=== PATIENT | male | born 1935 | race Caucasian/White ===

== ENCOUNTER 2017-03-06 09:57 | Observation (INO) | payer MEDICARE, OTHER, BC ==
--- NOTE | 2017-03-06 10:28 | RAD ---
HISTORY: Syncope COMPARISONS: July 29, 2016 TECHNIQUE: Multiple contiguous axial CT scans were obtained of the head without intravenous contrast. FINDINGS: HEMORRHAGE/INFARCT: There is no hemorrhage or acute infarct. MASSES/SHIFT: There is no mass or shift. EXTRA-AXIAL SPACES: There are no extra-axial fluid collections. SULCI AND VENTRICLES: The sulci and ventricles are normal in size and position for the patient's stated age. CEREBRUM: There is hypoattenuation of the periventricular and subcortical white matter. BRAINSTEM: There are no focal parenchymal abnormalities. CEREBELLUM: There are no focal parenchymal abnormalities. VESSELS: The vessels are grossly normal. PARANASAL SINUSES: The paranasal sinuses are clear. ORBITS: The orbits are unremarkable. BONES AND SOFT TISSUE: No bone or soft tissue abnormalities are noted. OTHER: None IMPRESSION: NO ACUTE INTRACRANIAL PATHOLOGY. CHRONIC SMALL VESSEL ISCHEMIC CHANGES.
[2017-03-06 10:42] LABS: Hematocrit 38 % (42-52); Hemoglobin 12.4 g/dl (14.0-18.0); Mean Corpuscular HGB Conc 33 g/dl (31-36); Mean Corpuscular Hemoglobin 31 pg (27-31); Mean Corpuscular Volume 93 fL (80-94); Mean Platelet Volume 9 um3 (7.4-10.4); Red Blood Count 4.05 10^6/ul (4.0-5.4); Red Cell Distribution Width 14 % (10.5-15)
--- NOTE | 2017-03-06 10:48 | RAD ---
INDICATION: Near syncopal episode this morning. History of cardiac disease. COMPARISON: June 28, 2009 TECHNIQUE: Dual energy PA and routine lateral views of the chest were obtained. REPORT: Symmetric bilateral nipple shadows noted. No focal pulmonary lesion, alveolar consolidation, pleural effusion, pneumothorax. The lung volumes appear elevated. The heart, pulmonary vasculature, and mediastinal contours are unremarkable. Multilevel thoracic degenerative spondylosis. No thoracic fracture or suspicious focal osseous lesion evident. IMPRESSION: No evidence for acute intrathoracic disease.
[2017-03-06 11:01] LABS: ALT 13 U/L (7-52); AST 22 U/L (13-39); Alkaline Phosphatase 109 U/L (34-104); Anion Gap 5 mmol/L (2-11); BUN/Creatinine Ratio 16.8 (8-20); Blood Urea Nitrogen 32 mg/dL (6-24); CO2 Carbon Dioxide 28 mmol/L (22-32); Calcium 9.3 mg/dL (8.6-10.3); Chloride 106 mmol/L (101-111); EGFR African American 43.6 (>60); EGFR Non-African American 33.9 (>60); Globulin 2.6 g/dL (2-4); Glucose 89 mg/dL (70-100); Potassium 4.2 mmol/L (3.5-5.0); Sodium 139 mmol/L (133-145); Total Protein 6.6 g/dL (6.4-8.9)
[2017-03-06 11:32] LABS: Alcohol < 10 mg/dL (<10)
[2017-03-06] MEDS ORDERED: Acetaminophen TAB* 325 MG PO PRN (12:32)
[2017-03-06] MEDS ORDERED: NS 0.9% 1000 ML* 1,000 ML IV ONE (12:53)
--- NOTE | 2017-03-06 13:30 | ED ---
García Solorio Matthew, scribed for Kiran Ward MD on 03/06/17 at 1054 . Syncope/Near Syncope - HPI Summary HPI Summary: An 81 y/o male presents to the ED after a syncopal episode this morning. The patient was in the kitchen making breakfast, when he became dizzy and pass out. He denies the room spinning. He states that he was leaning on the counter and did not fall during the episode. Associated symptoms include dizziness, LOC, and left ankle swelling. The patient denies palpitations, SOB, and chest pain. Per the , he had a similar episode in April of 2016 and was found to be dehydrated at that time. - History Of Current Complaint Chief Complaint: EDSyncope Time Seen by Provider: 03/06/17 10:07 Hx Obtained From: Patient Onset/Duration: Sudden Onset, Resolved Context: Unwitnessed Activity At Onset: Exertion - ambulating Associated Head Trauma: No Aggravating Factor(s): Nothing Alleviating Factor(s): Spontaneous Resolution Associated Signs And Symptoms: Dizzy, Other - left ankle swelling - Allergies/Home Medications Allergies/Adverse Reactions: Allergies Allergy/AdvReac Type Severity Reaction Status Date / Time Ciprofloxacin [From Cipro] Allergy Anaphylatic Verified 07/29/16 19:06 Shock Valsartan [From Diovan] Allergy Hives Verified 07/29/16 19:06 Home Medications: Home Medications Allopurinol TAB* [Zyloprim 100 MG TAB*] 200 mg PO DAILY 03/06/17 [History Confirmed 03/06/17] Aspirin EC Low Dose* [Ecotrin EC Low Dose 81 MG*] 81 mg PO DAILY 03/06/17 [ History Confirmed 03/06/17] amLODIPine TAB* [Norvasc 5 mg TAB*] 10 mg PO DAILY 03/06/17 [History Confirmed 03/06/17] hydrALAZINE TAB* [Apresoline TAB*] 50 mg PO BID 03/06/17 [History Confirmed 11/10] PMH/Surg Hx/FS Hx/Imm Hx Cardiovascular History: Reports: Hx Hypercholesterolemia, Hx Hypertension Infectious Disease History: Denies: Traveled Outside the [place] in Last 30 Days - Family History Known Family History: Positive: Cardiac Disease, Renal Disease, Other - [place] - Social History Alcohol Use: Occasionally Hx Substance Use: No Substance Use Type: Reports: None Smoking Status (MU): Never Smoked Tobacco Review of Systems Constitutional: Negative Eyes: Negative ENT: Negative Cardiovascular: Negative Negative: Palpitations, Chest Pain Respiratory: Negative Negative: Shortness Of Breath Gastrointestinal: Negative Genitourinary: Negative Positive: Edema - left ankle Skin: Negative Neurological: Other - Dizziness; LOC Positive: Syncope Psychological: Normal All Other Systems Reviewed And Are Negative: Yes Physical Exam - Summary Physical Exam Summary: GENERAL: Patient is a well developed and nourished male who is lying comfortable in the stretcher. Patient is not in any acute respiratory distress. HEAD AND FACE: No signs of trauma. No ecchymosis, hematomas or skull depressions. No sinus tenderness. EYES: PERRLA, EOMI x 2, No injected conjunctiva, no nystagmus. No photophobia. EARS: Hearing grossly intact. Ear canals and tympanic membranes are within normal limits. MOUTH: Oropharynx within normal limits. NECK: Supple, trachea is midline, no adenopathy, no JVD, no carotid bruit, no c- spine tenderness, neck with full ROM. No meningeal signs, no Kernig's or brudzinskis signs. CHEST: Symmetric, no tenderness at palpation LUNGS: Clear to auscultation bilaterally. No wheezing or crackles. CVS: Regular rate and rhythm, S1 and S2 present, no murmurs or gallops appreciated. ABDOMEN: Soft, non-tender. No signs of distention. No rebound no guarding, and no masses palpated. Bowel sounds are normal. EXTREMITIES: FROM in all major joints, no edema, no cyanosis or clubbing. NEURO: Alert and oriented x 3. No acute neurological deficits. Speech is normal and follows commands. SKIN: Dry and warm Triage Information Reviewed: Yes Vital Signs On Initial Exam: Initial Vitals Temp Pulse Resp BP Pulse Ox 98.0 F 68 14 128/65 99 03/06/17 09:57 03/06/17 09:57 03/06/17 09:57 03/06/17 09:57 03/06/17 09:57 Vital Signs Reviewed: Yes Diagnostics - Vital Signs Vital Signs Temp Pulse Resp BP Pulse Ox 03/06/17 09:57 98.0 F 68 14 128/65 99 - Laboratory Lab Results: Lab Results 03/06/17 03/06/17 03/06/17 Range/Units 10:30 10:30 10:30 WBC 6.0 (3.5-10.8) 10^3/ul RBC 4.05 (4.0-5.4) 10^6/ul Hgb 12.4 L (14.0-18.0) g/dl Hct 38 L (42-52) % MCV 93 (80-94) fL MCH 31 (27-31) pg MCHC 33 (31-36) g/dl RDW 14 (10.5-15) % Plt Count 161 (150-450) 10^3/ul MPV 9 (7.4-10.4) um3 Neut % (Auto) 68.7 (38-83) % Lymph % (Auto) 23.4 L (25-47) % [place] % (Auto) 5.6 (1-9) % Eos % (Auto) 1.3 (0-6) % Baso % (Auto) 1.0 (0-2) % Absolute Neuts (auto) 4.1 (1.5-7.7) 10^3/ul Absolute Lymphs (auto) 1.4 (1.0-4.8) 10^3/ul Absolute Monos (auto) 0.3 (0-0.8) 10^3/ul Absolute Eos (auto) 0.1 (0-0.6) 10^3/ul Absolute Basos (auto) 0.1 (0-0.2) 10^3/ul Absolute Nucleated RBC 0 10^3/ul Nucleated RBC % 0.1 Sodium 139 (133-145) mmol/L Potassium 4.2 (3.5-5.0) mmol/L Chloride 106 (101-111) mmol/L Carbon Dioxide 28 (22-32) mmol/L Anion Gap 5 (2-11) mmol/L BUN 32 H (6-24) mg/dL Creatinine 1.91 H (0.67-1.17) mg/dL Est GFR ( Amer) 43.6 (>60) Est GFR (Non-Af Amer) 33.9 (>60) BUN/Creatinine Ratio 16.8 (8-20) Glucose 89 (70-100) mg/dL Lactic Acid 1.3 (0.5-2.0) mmol/L Calcium 9.3 (8.6-10.3) mg/dL Magnesium 2.0 (1.9-2.7) mg/dL Total Bilirubin 0.80 (0.2-1.0) mg/dL AST 22 (13-39) U/L ALT 13 (7-52) U/L Alkaline Phosphatase 109 H (34-104) U/L Troponin I 0.00 (<0.04) ng/mL B-Natriuretic Peptide ( - 100) pg/mL Total Protein 6.6 (6.4-8.9) g/dL Albumin 4.0 (3.2-5.2) g/dL Globulin 2.6 (2-4) g/dL Albumin/Globulin Ratio 1.5 (1-3) TSH 1.50 (0.34-5.60) mcIU/mL Serum Alcohol < 10 (<10) mg/dL 03/06/17 Range/Units 10:30 WBC (3.5-10.8) 10^3/ul RBC (4.0-5.4) 10^6/ul Hgb (14.0-18.0) g/dl Hct (42-52) % MCV (80-94) fL MCH (27-31) pg MCHC (31-36) g/dl RDW (10.5-15) % Plt Count (150-450) 10^3/ul MPV (7.4-10.4) um3 Neut % (Auto) (38-83) % Lymph % (Auto) (25-47) % [place] % (Auto) (1-9) % Eos % (Auto) (0-6) % Baso % (Auto) (0-2) % Absolute Neuts (auto) (1.5-7.7) 10^3/ul Absolute Lymphs (auto) (1.0-4.8) 10^3/ul Absolute Monos (auto) (0-0.8) 10^3/ul Absolute Eos (auto) (0-0.6) 10^3/ul Absolute Basos (auto) (0-0.2) 10^3/ul Absolute Nucleated RBC 10^3/ul Nucleated RBC % Sodium (133-145) mmol/L Potassium (3.5-5.0) mmol/L Chloride (101-111) mmol/L Carbon Dioxide (22-32) mmol/L Anion Gap (2-11) mmol/L BUN (6-24) mg/dL Creatinine (0.67-1.17) mg/dL Est GFR ( Amer) (>60) Est GFR (Non-Af Amer) (>60) BUN/Creatinine Ratio (8-20) Glucose (70-100) mg/dL Lactic Acid (0.5-2.0) mmol/L Calcium (8.6-10.3) mg/dL Magnesium (1.9-2.7) mg/dL Total Bilirubin (0.2-1.0) mg/dL AST (13-39) U/L ALT (7-52) U/L Alkaline Phosphatase (34-104) U/L Troponin I (<0.04) ng/mL B-Natriuretic Peptide 111 H ( - 100) pg/mL Total Protein (6.4-8.9) g/dL Albumin (3.2-5.2) g/dL Globulin (2-4) g/dL Albumin/Globulin Ratio (1-3) TSH (0.34-5.60) mcIU/mL Serum Alcohol (<10) mg/dL Result Diagrams: 03/06/17 10:30 03/06/17 10:30 Lab Statement: Any lab studies that have been ordered have been reviewed, and results considered in the medical decision making process. - Radiology CXR Xray Interpretation: No Acute Changes - IMPRESSION: No evidence for acute intrathoracic disease. Radiology Interpretation Completed By: Radiologist - CT Brain CT CT Interpretation: No Acute Changes - IMPRESSION: NO ACUTE INTRACRANIAL PATHOLOGY. CHRONIC SMALL VESSEL ISCHEMIC CHANGES. CT Interpretation Completed By: Radiologist - EKG 10:34 Cardiac Rate: NL - 70 bpm EKG Rhythm: Sinus Rhythm EKG Interpretation: No ST elevation; RBBB similar to 07/29/16 Course/Dx Assessment/Plan: An 81 y/o male presents to the ED after a syncopal episode this morning. The patient was in the kitchen making breakfast, when he became dizzy and pass out. He denies the room spinning. He states that he was leaning on the counter and did not fall during the episode. Associated symptoms include dizziness, LOC, and left ankle swelling. The patient denies palpitations, SOB, and chest pain. Per the , he had a similar episode in April of 2016 and was found to be dehydrated at that time. Blood work WNL expect for mild anemia and chronic renal insufficiency. CXR shows No evidence for acute intrathoracic disease. Brain CT shows no acute intracranial pathology and chronic small vessel ischemic changes. In the ED course, the patient was hydrated. Because of his multiple medical co-morbidities, I discussed my physical exam findings with Dr. Hirsch who will admit the patient. The patient is hemodynamically stable and A&Ox3. - Diagnoses Differential Diagnosis/HQI/PQRI: Positive: Cerebral Vascular Accident, Dysrhythmia, Myocardial Infarction, Seizure, Transient Ischemic Attack, Vasovagal Episode Provider Diagnoses: Syncope - Physician Notifications Discussed Care Of Patient With: Dr. Hirsch (Hospitalist) at 11:21 -- Notified of patient's history and will admit the patient. Discharge - Discharge Plan Condition: Stable Disposition: ADMITTED TO [facility] The documentation as recorded by the García gray Matthew accurately reflects the service I personally performed and the decisions made by me, Kiran Ward MD.
[2017-03-06 14:32] LABS: Urine Bilirubin Negative (Negative); Urine Glucose Negative (Negative); Urine Nitrite Negative (Negative)
[2017-03-06 14:46] LABS: Benzodiazepine Urine Screen None Detected (None Detect)
[2017-03-06] MEDS: Heparin VIAL(*) 5000 UNITS/ML VIAL (FIVE THOUSAND) SUBCUT SCH ×2 (14:59→22:20)
--- NOTE | 2017-03-06 17:02 | HP ---
HOSPITAL MEDICINE HISTORY AND PHYSICAL: DATE OF ADMISSION: PRIMARY CARE PHYSICIAN: Dr. Franz. ATTENDING PHYSICIAN: Dr. Lyndon Hirsch* (dictated provided by Kimber Lucas NP). CHIEF COMPLAINT: Near syncope. HISTORY OF PRESENT ILLNESS: Mr. Leo is an 81-year-old male with a past medical history of chronic kidney disease, stage 3; hypertension; coronary artery disease, who presents today to the hospital with concern for near syncope. Mr. Leo states that he has had episodes now and again where he has fainted or almost fainted. He had an episode last April and in July, which was thought to be related to heat exhaustion and dehydration. On Saturday, he had an episode where he felt off balance and near syncopal. He did go to see Dr. Franz yesterday for this complaint and also complaint of prickliness in his left foot and leg. In addition, he also reported some intermittent lower extremity edema. Per the report, there are no changes made to the patient's medication regimen or plan of care at that point. Today, the patient states that when he was up setting the table for breakfast, he suddenly felt everything "go blank." He held on to the counter and did not pass out. He states he came to and his vision was restored within a few seconds. Thereafter , he felt unwell. He went to lie down and felt nauseous and clammy. He did not vomit. His came to check on him and plans were made for him to come to the emergency room. He denies any recent illnesses. He has had no fevers, no chills, no cough, no abdominal pain. He has been eating and drinking normally. In the emergency room, Mr. Leo had lab values consistent with previous showing his ongoing chronic kidney disease at baseline. CT brain was normal. Chest x-ray was normal. EKG showed no evidence of ischemia. His troponin was 0. PAST MEDICAL HISTORY: 1. CKD, stage 3. 2. Hypertension. 3. Carotid endarterectomy, 2002. 4. Coronary artery disease with stent, 2006. 5. Hyperlipidemia. 6. Hypertension. 7. History of cataract surgery. 8. History of "leaky valve" last echo approximately 2 months ago. 9. Gout. MEDICATIONS: 1. Amlodipine 10 mg p.o. daily. 2. Irbesartan 300 mg p.o. daily. 3. Allopurinol 200 mg p.o. daily. 4. Aspirin 81 mg p.o. daily. 5. Hydralazine 50 mg p.o. b.i.d. ALLERGIES: To CIPROFLOXACIN and VALSARTAN. FAMILY HISTORY: Mother at 57 related to cancer. Father at 74 related to heart and kidney disease. Sister at 79 from leukemia. SOCIAL HISTORY: No report of tobacco or drug use. The patient drinks alcohol very occasionally. Lives with his , who is the healthcare proxy. REVIEW OF SYSTEMS: A 14-point review of systems was completed with Mr. Leo and all those not mentioned above were negative. PHYSICAL EXAMINATION GENERAL: Mr. Leo is sitting up in the bed. He is in no acute distress, but says he is tired. VITAL SIGNS: Blood pressure 137/53, heart rate 66, temperature 98.5, respiratory rate 16, and O2 saturation 95% on room air. LUNGS: Clear to auscultation bilaterally with no accessory muscle use and good aeration. HEART: S1 and S2. No murmur, rub, or gallop, and regular. ABDOMEN: Soft and nontender with bowel sounds positive x4. EXTREMITIES: No cyanosis or edema. NEURO: He is alert and oriented x3. He moves all extremities equally. There is no facial asymmetry or focal weakness. Extraocular movements are intact. There is no pronator drift. SKIN: Intact. DIAGNOSTIC STUDIES/LAB DATA: Sodium 139, potassium 4.2, chloride 106, serum bicarbonate 28, BUN 32, creatinine 1.91, glucose 89, lactic acid 1.3, calcium 9.3, magnesium 2.0. Troponin 0.00. TSH 1.50. WBC 6.0, hemoglobin 12.4, hematocrit 38, and platelet count 161. Serum alcohol level is less than 10. CT brain is read as follows: "No acute intracranial pathology. Chronic small vessel ischemic changes." Chest x-ray read as follows: "No evidence for acute intrathoracic disease." EKG shows sinus rhythm with a right bundle branch block and no evidence of ischemia. The patient's last carotid endarterectomy was in 2016 and is read as negative for any significant stenosis. ASSESSMENT AND PLAN: Mr. Leo is an 81-year-old male with a past medical history of coronary artery disease; chronic kidney disease, stage 3; hypertension, who presents today to the hospital with concern for near syncopal episode. Our plans are for observation in the hospital for the followin. Near syncope: The patient shows no evidence of dehydration. I have written for orthostatic vital signs to be checked now. I plan to obtain the records from Dr. Fontenot, who is a logistics program manager at [place], who performed his last echocardiogram which is reported to be about 2 months ago. I do not see an indication to repeat that if those records are available. The patient will be monitored on the telemetry unit. Will be monitoring his blood pressure closely to see if perhaps hypotension is contributing to his symptoms. There is no evidence of infection. CT brain is negative. 2. Coronary artery disease. The patient is chest pain free. His troponin is normal. Plan to continue aspirin and blood pressure medications per routine. 3. Hypertension. Plan to continue amlodipine. We will substitute losartan for irbesartan as irbesartan is nonformulary and he will also continue his hydralazine. 4. Chronic kidney disease, stage 3, is at baseline. 5. Hyperlipidemia. The patient is not currently on statin. 6. DVT prophylaxis with heparin subcu. 7. Disposition. To telemetry floor for observation. 8. Code status is full code. This was reviewed with the patient's family at the bedside today. TIME SPENT: Approximately 60 minutes was spent in admission of this patient, more than half the time spent with the patient at the bedside reviewing the events leading up to this hospitalization, performing the physical examination, and reviewing the plan of care. KIMBER LUCAS NP CC: Dr. Franz* [id number]/[facility] #: [id number] [place]
[2017-03-06] MEDS: hydrALAZINE TAB* 25 MG PO SCH ×2 (17:34→22:19)
[2017-03-06] MEDS ORDERED: Atorvastatin* 20 MG TAB PO SCH (21:00)
[2017-03-06] MEDS ORDERED: hydrALAZINE TAB* 25 MG PO SCH (21:00)
[2017-03-07] MEDS: Heparin VIAL(*) 5000 UNITS/ML VIAL (FIVE THOUSAND) SUBCUT SCH ×2 (06:54→14:03)
[2017-03-07] MEDS: hydrALAZINE TAB* 25 MG PO SCH (08:57)
[2017-03-07] MEDS ORDERED: amLODIPine TAB* 5 MG PO SCH ×2 (09:00→12:00)
[2017-03-07] MEDS ORDERED: Losartan TAB* 25 MG PO SCH (09:00)
[2017-03-07] MEDS ORDERED: Aspirin EC Low Dose* 81 MG TAB.EC PO SCH (09:00)
[2017-03-07] MEDS ORDERED: Allopurinol TAB* 100 MG PO SCH (09:00)
--- NOTE | 2017-03-07 14:37 | DCNOTE ---
Subjective Date of Service: 03/07/17 Interval History: No more dizzy spells since admission. Patient sometiems gets dizzy when getting out of bed. No chest pain, SOB, cough. Appetite OK. Objective Active Medications: Acetaminophen (Tylenol Tab*) 650 mg PO Q6H PRN PRN Reason: PAIN Last Admin: 03/07/17 11:32 Dose: 650 mg Allopurinol (Zyloprim Tab*) 200 mg PO DAILY [facility] Last Admin: 03/07/17 08:52 Dose: 200 mg Amlodipine Besylate (Norvasc Tab*) 10 mg PO 1200 [facility] Last Admin: 03/07/17 11:32 Dose: 10 mg Aspirin (Aspirin Ec Low Dose*) 81 mg PO DAILY [facility] Last Admin: 03/07/17 08:52 Dose: 81 mg Atorvastatin Calcium (Lipitor*) 20 mg PO 2100 [facility] Last Admin: 03/06/17 22:18 Dose: 20 mg Heparin Sodium (Porcine) (Heparin Vial(*)) 5,000 units SUBCUT Q8HR [facility] Last Admin: 03/07/17 14:03 Dose: 5,000 units Losartan Potassium (Cozaar Tab*) 100 mg PO DAILY [facility] Last Admin: 03/07/17 08:53 Dose: 100 mg Vital Signs 03/06/17 03/06/17 03/06/17 15:28 15:45 15:48 Temperature 98.5 F Pulse Rate 72 76 74 Respiratory 17 Rate Blood Pressure 130/49 126/56 105/45 (mmHg) O2 Sat by Pulse 97 98 97 Oximetry 03/06/17 03/06/17 03/07/17 19:24 23:55 04:57 Temperature 98.4 F 98.6 F 98.2 F Pulse Rate 66 71 62 Respiratory 18 20 20 Rate Blood Pressure 119/48 110/47 158/61 (mmHg) O2 Sat by Pulse 97 96 99 Oximetry Oxygen Devices in Use Now: None Appearance: Alert, supine in bed. In fair spirits. Looks comfortable. Eyes: No Scleral Icterus Ears/Nose/Mouth/Throat: Mucous Membranes Moist Neck: NL Appearance and Movements; NL JVP, No Thyroid Enlargement, Masses Respiratory: Symmetrical Chest Expansion and Respiratory Effort, Clear to Auscultation, Clear to Percussion Cardiovascular: NL Sounds; No Murmurs; No JVD, RRR, No Edema, - Extremities: No Edema, No Clubbing, Cyanosis, - Skin: No Rash or Ulcers, No Nodules or Sclerosis Neurological: NL Sensation, - - He knows the present month. He looks to his for answers to questions. Result Diagrams: 03/06/17 10:30 03/06/17 10:30 Additional Lab and Data: Lab Results 03/06/17 03/06/17 03/06/17 Range/Units 10:30 10:30 10:30 WBC 6.0 (3.5-10.8) 10^3/ul RBC 4.05 (4.0-5.4) 10^6/ul Hgb 12.4 L (14.0-18.0) g/dl Hct 38 L (42-52) % MCV 93 (80-94) fL MCH 31 (27-31) pg MCHC 33 (31-36) g/dl RDW 14 (10.5-15) % Plt Count 161 (150-450) 10^3/ul MPV 9 (7.4-10.4) um3 Neut % (Auto) 68.7 (38-83) % Lymph % (Auto) 23.4 L (25-47) % [place] % (Auto) 5.6 (1-9) % Eos % (Auto) 1.3 (0-6) % Baso % (Auto) 1.0 (0-2) % Absolute Neuts (auto) 4.1 (1.5-7.7) 10^3/ul Absolute Lymphs (auto) 1.4 (1.0-4.8) 10^3/ul Absolute Monos (auto) 0.3 (0-0.8) 10^3/ul Absolute Eos (auto) 0.1 (0-0.6) 10^3/ul Absolute Basos (auto) 0.1 (0-0.2) 10^3/ul Absolute Nucleated RBC 0 10^3/ul Nucleated RBC % 0.1 Sodium 139 (133-145) mmol/L Potassium 4.2 (3.5-5.0) mmol/L Chloride 106 (101-111) mmol/L Carbon Dioxide 28 (22-32) mmol/L Anion Gap 5 (2-11) mmol/L BUN 32 H (6-24) mg/dL Creatinine 1.91 H (0.67-1.17) mg/dL Est GFR ( Amer) 43.6 (>60) Est GFR (Non-Af Amer) 33.9 (>60) BUN/Creatinine Ratio 16.8 (8-20) Glucose 89 (70-100) mg/dL Lactic Acid 1.3 (0.5-2.0) mmol/L Calcium 9.3 (8.6-10.3) mg/dL Magnesium 2.0 (1.9-2.7) mg/dL Total Bilirubin 0.80 (0.2-1.0) mg/dL AST 22 (13-39) U/L ALT 13 (7-52) U/L Alkaline Phosphatase 109 H (34-104) U/L Troponin I 0.00 (<0.04) ng/mL B-Natriuretic Peptide ( - 100) pg/mL Total Protein 6.6 (6.4-8.9) g/dL Albumin 4.0 (3.2-5.2) g/dL Globulin 2.6 (2-4) g/dL Albumin/Globulin Ratio 1.5 (1-3) TSH 1.50 (0.34-5.60) mcIU/mL Serum Alcohol < 10 (<10) mg/dL 03/06/17 Range/Units 10:30 WBC (3.5-10.8) 10^3/ul RBC (4.0-5.4) 10^6/ul Hgb (14.0-18.0) g/dl Hct (42-52) % MCV (80-94) fL MCH (27-31) pg MCHC (31-36) g/dl RDW (10.5-15) % Plt Count (150-450) 10^3/ul MPV (7.4-10.4) um3 Neut % (Auto) (38-83) % Lymph % (Auto) (25-47) % [place] % (Auto) (1-9) % Eos % (Auto) (0-6) % Baso % (Auto) (0-2) % Absolute Neuts (auto) (1.5-7.7) 10^3/ul Absolute Lymphs (auto) (1.0-4.8) 10^3/ul Absolute Monos (auto) (0-0.8) 10^3/ul Absolute Eos (auto) (0-0.6) 10^3/ul Absolute Basos (auto) (0-0.2) 10^3/ul Absolute Nucleated RBC 10^3/ul Nucleated RBC % Sodium (133-145) mmol/L Potassium (3.5-5.0) mmol/L Chloride (101-111) mmol/L Carbon Dioxide (22-32) mmol/L Anion Gap (2-11) mmol/L BUN (6-24) mg/dL Creatinine (0.67-1.17) mg/dL Est GFR ( Amer) (>60) Est GFR (Non-Af Amer) (>60) BUN/Creatinine Ratio (8-20) Glucose (70-100) mg/dL Lactic Acid (0.5-2.0) mmol/L Calcium (8.6-10.3) mg/dL Magnesium (1.9-2.7) mg/dL Total Bilirubin (0.2-1.0) mg/dL AST (13-39) U/L ALT (7-52) U/L Alkaline Phosphatase (34-104) U/L Troponin I (<0.04) ng/mL B-Natriuretic Peptide 111 H ( - 100) pg/mL Total Protein (6.4-8.9) g/dL Albumin (3.2-5.2) g/dL Globulin (2-4) g/dL Albumin/Globulin Ratio (1-3) TSH (0.34-5.60) mcIU/mL Serum Alcohol (<10) mg/dL Assess/Plan/Problems-Billing Assessment: - Patient Problems (1) Near syncope Current Visit: Yes Status: Acute Comment: Likely related to orthostatic hypotension from BP meds. Nothing significant on tele. Hydralazine d/c'd. (2) HTN (hypertension) Current Visit: Yes Status: Acute Code(s): I10 - ESSENTIAL (PRIMARY) HYPERTENSION SNOMED Code(s): 02198133 Comment: Continue amlodipine and irbesartan. (3) CKD (chronic kidney disease) Current Visit: Yes Status: Acute Code(s): N18.9 - CHRONIC KIDNEY DISEASE, UNSPECIFIED SNOMED Code(s): 284121788 (4) CKD (chronic kidney disease) stage 3, GFR 30-59 ml/min Current Visit: Yes Status: Acute Code(s): N18.3 - CHRONIC KIDNEY DISEASE, STAGE 3 (MODERATE) SNOMED Code(s): 924042402 Comment: Est GFR 33.9. (5) CAD (coronary artery disease) Current Visit: Yes Status: Acute Code(s): I25.10 - ATHSCL HEART DISEASE OF [place] CORONARY ARTERY W/O ANG PCTRS SNOMED Code(s): 23003445 Comment: Continue ASA. Status and Disposition: Discharge now. Fup Dr. Franz.
[2017-03-07 15:37] VITALS: BP 153/58
--- NOTE | 2017-03-08 08:45 | DS ---
DISCHARGE SUMMARY: DATE OF ADMISSION: DATE OF DISCHARGE: 03/07/17 HISTORY: This 81-year-old man came complaining of near syncope and may have actually passed out. When he was setting up breakfast this morning everything went black. He did not fall down; he held onto the counter, so likely he did not actually loose consciousness completely. His vision was restored within a few seconds. He had similar episodes in the past, sometimes when getting out of bed, other times last year in the warm weather, thought to be related to heat exhaustion with dehydration. The rest of the history is detailed in the dictated admission note. Main significant finding was that he had orthostatic hypotension. His blood pressure standing was 105/45. He was placed on telemetry, he did not have any significant arrhythmias. My clinical impression is that the patient's orthostatic hypertension is related to the blood pressure medications and this is causing his symptoms. I think he would do better with higher average blood pressure and less blood pressure medication. As an initial choice, I have decided to stop his hydralazine, and then he will continue on the irbesartan and amlodipine, both of which are in large doses at present. FINAL DIAGNOSES: 1. Orthostatic hypotension. 2. Near syncope. 3. Hypertension. 4. Chronic kidney disease. 5. Coronary artery disease. DISCHARGE MEDICATIONS: 1. Irbesartan 300 mg daily. 2. Allopurinol 200 mg daily. 3. Aspirin 81 mg daily. 4. Amlodipine 10 mg daily. 5. Atorvastatin 20 mg daily. CC: Dr. Franz.* [id number]/CPS #: [id number] MTDD
== END 2017-03-07 16:11 | disposition home or self-care (01) ==
LOC: ED 09:57 → MEDTELE 12:26
PROVIDERS: ADMIT Internal Medicine; ATTEND Internal Medicine
DX: I95.1 Orthostatic hypotension (principal); R55 Syncope and collapse; I25.10 Atherosclerotic heart disease of native coronary artery without angina pectoris; I12.9 Hypertensive chronic kidney disease with stage 1 through stage 4 chronic kidney disease, or unspecified chronic kidney disease; N18.3 Chronic kidney disease, stage 3 (moderate); Z95.5 Presence of coronary angioplasty implant and graft; E78.5 Hyperlipidemia, unspecified; M10.9 Gout, unspecified; I45.10 Unspecified right bundle-branch block; Z79.82 Long term (current) use of aspirin; Z79.899 Other long term (current) drug therapy; Z88.1 Allergy status to other antibiotic agents; Z88.8 Allergy status to other drugs, medicaments and biological substances
CPT/HCPCS: 36415; 70450; 71020; 80053; 80307; 80320; 81003; 83605; 83735; 83880; 84443; 84484; 85025; 93005; 96360; 96361; 96372; 99285; A9270-GY; G0378; G0480; J1644

== ENCOUNTER 2018-05-13 12:32 | Emergency (ER) | payer MEDICARE, OTHER, BC ==
[2018-05-13 13:49] LABS: ABS Basophils 0 10^3/ul (0-0.2); ABS Eosinophils 0.1 10^3/ul (0-0.6); ABS Monocytes 0.5 10^3/ul (0-0.8); ABS Nucleated RBC 0 10^3/ul; Eosinophil % 0.8 % (0-6); Hematocrit 30 % (42-52); Hemoglobin 10.2 g/dl (14.0-18.0); Lymphocyte % 8.9 % (25-47); Mean Corpuscular HGB Conc 35 g/dl (31-36); Mean Corpuscular Hemoglobin 31 pg (27-31); Mean Corpuscular Volume 91 fL (80-94); Mean Platelet Volume 8.6 um3 (7.4-10.4); Nucleated Red Blood Cells % 0; Platelet Count 143 10^3/ul (150-450); Red Blood Count 3.25 10^6/ul (4.00-5.40); Red Cell Distribution Width 15 % (10.5-15); White Blood Count 11.7 10^3/ul (3.5-10.8)
--- NOTE | 2018-05-13 13:54 | RAD ---
INDICATION: Chest pain August 19, 2003 COMPARISON: None TECHNIQUE: An AP portable view obtained at 1350 hours is submitted. FINDINGS: Bones/Soft Tissues: There are no acute bony findings. Cardiomediastinal: The cardiomediastinal silhouette is normal. Lungs: There are no infiltrates. Pleura: There are no pleural effusions. Other: None IMPRESSION: NO ACTIVE DISEASE.
[2018-05-13 14:19] LABS: EGFR Non-African American 37.7 (>60)
--- NOTE | 2018-05-13 15:19 | RAD ---
INDICATION: Right upper quadrant pain. COMPARISON: There are no prior studies available for comparison. TECHNIQUE: Multiple real-time images of the right upper quadrant were obtained. FINDINGS: The gallbladder appears distended. There is increased echogenicity in the neck of the gallbladder consistent with sludge or gallstones. No gallbladder wall thickening is seen. There is a trace amount of pericholecystic fluid noted. No positive sonographic Yates sign was present. No intrahepatic ductal distention is seen. There is mild prominence of the extrahepatic ducts. The common bile duct measured 0.8 cm in diameter. The liver is normal in size without significant focal abnormality. The pancreas is obscured by overlying bowel gas. The right kidney is normal in size without evidence for hydronephrosis. IMPRESSION: 1. DISTENDED GALLBLADDER WITH SLUDGE OR GALLSTONES. 2. MILDLY DISTENDED EXTRAHEPATIC DUCTS.
[2018-05-13] MEDS ORDERED: Morphine INJ* 4 MG/ML 1 ML CARPUJECT IV ONE (16:19)
[2018-05-13] MEDS ORDERED: Morphine VIAL* 4 MG/ML VIAL (1 ml vial) IV ONE ×2 (16:48→16:50)
[2018-05-13 18:33] VITALS: BP 157/67
--- NOTE | 2018-05-13 18:41 | ED ---
Jameel Solorio Angela, scribed for Marvel Lee MD on 05/13/18 at 1240 . HPI Chest Pain - HPI Summary HPI Summary: This pt is an 82 y/o male presenting to [facility] via EMS c/o sudden onset of chest pain today since approx 11:00. Pt reports he was sitting down at onset of his chest pain. He notes he first developed nausea and then chest pain. Pt notes his chest pain radiates to the middle of his back. Chest pain is described as mid sternal, dull and achy. His chest pain is not aggravated or alleviated by nothing. EMS denies pt had diaphoresis. Pt currently c/o constant, chest pain, SOB, back pain, and nausea. EMS administered 324 mg aspirin and nitroglycerin x3 [employer]. Per EMS pt's chest pain increased from 5 to 8 out of 10 in severity in the ambulance. Additionally EMS reports the pt's blood pressure decreased to 98 systolic upon arrival. PMHx includes CAD, cardiac stents, HTN, hypercholesterolemia, stage 4 chronic kidney disease. - History of Current Complaint Time Seen by Provider: 05/13/18 12:34 Hx Obtained From: Patient, EMS Onset/Duration: Started Hours Ago, Still Present Timing: Lasting Hours Current Severity: Moderate Pain Intensity: 4 Pain Scale Used: 0-10 Numeric Chest Pain Location: Mid Sternal Chest Pain Radiates: Yes Chest Pain Radiates To:: Back Character: Dull/Aching Aggravating Factor(s): Nothing Alleviating Factor(s): Nothing Associated Signs and Symptoms: Positive: Chest Pain, Shortness of Breath, Nausea , Back Pain. Negative: Vomiting - Additional Pertinent History Primary Care Physician: [id number] - Allergy/Home Medications Allergies/Adverse Reactions: Allergies Allergy/AdvReac Type Severity Reaction Status Date / Time ciprofloxacin Allergy Hallucinati Verified 05/13/18 13:36 ons valsartan [From Diovan] Allergy Hives Verified 05/13/18 13:36 Home Medications: Home Medications Aspirin EC TAB* [Ecotrin EC Low Dose 81 MG*] 81 mg PO QAM 05/13/18 [History Confirmed 05/13/18] Ferrous Sulfate TAB* 650 mg PO DAILY 05/13/18 [History Confirmed 05/13/18] Multivitamins/Minerals TAB* [Theragran/minerals TAB*] 1 tab PO QAM 05/13/18 [ History Confirmed 05/13/18] PMH/Surg Hx/FS Hx/Imm Hx Cardiovascular History: Reports: Hx Coronary Artery Disease, Hx Hypercholesterolemia, Hx Hypertension - ON MEDICATION, Other Cardiovascular Problems/Disorders - s/p cardiac stents GI History: Reports: Hx Diverticulosis History: Reports: Hx Chronic Renal Failure - stage IV, Hx Renal Disease - LEVEL 4 Sensory History: Reports: Hx Contacts or Glasses - reading Denies: Hx Hearing Aid Opthamlomology History: Reports: Hx Contacts or Glasses - reading Psychiatric History: Reports: Hx Depression - Surgical History Surgery Procedure, Year, and Place: carotid endarectomy LEFT, cardiac stent - Family History Known Family History: Positive: Cardiac Disease, Renal Disease, Other - [place] - Social History Alcohol Use: Occasionally Hx Substance Use: No Substance Use Type: Reports: None Smoking Status (MU): Never Smoked Tobacco Review of Systems Negative: Fever, Skin Diaphoresis Positive: Chest Pain Positive: Shortness Of Breath Positive: Nausea. Negative: Vomiting Musculoskeletal: Other - POS: back pain All Other Systems Reviewed And Are Negative: Yes Physical Exam - Summary Physical Exam Summary: Appearance: The patient is well-nourished in no acute distress and in no acute pain. Skin: The skin is warm and dry and skin color reflects adequate perfusion. HEENT: The head is normocephalic and atraumatic. The pupils are equal and reactive. The conjunctivae are clear and without drainage. Nares are patent and without drainage. Mouth reveals moist mucous membranes and the throat is without erythema and exudate. The external ears are intact. The ear canals are patent and without drainage. The tympanic membranes are intact. Neck: the neck is supple with full range of motion and non-tender. There is no neck vein distension. Either a bruit on carotid or transmitted murmur, unable to tell. Respiratory: Chest is non-tender. Lungs are clear to auscultation and breath sounds are symmetrical and equal. Cardiovascular: Heart is regular rate and rhythm. There is a soft systolic ejection murmur. There is no peripheral edema and pulses are symmetrical and equal. Good dorsalis pedis pulses. Good radial pulses. Abdomen: The abdomen is soft and non-tender. There are normal bowel sounds heard in all four quadrants and there is no organomegaly palpated. Musculoskeletal: There is no back tenderness noted. Extremities are non-tender with full range of motion. There is good capillary refill. There is no peripheral edema or calf tenderness elicited. Neurological: Patient is alert and oriented to person, place and time. The patient has symmetrical motor strength in all four extremities. Cranial nerves are grossly intact. Deep tendon reflexes are symmetrical and equal in all four extremities. Psychiatric: The patient has an appropriate affect and does not exhibit any anxiety or depression. Triage Information Reviewed: Yes Vital Signs On Initial Exam: Initial Vitals Temp Pulse Resp BP Pulse Ox 98.1 F 59 20 127/52 96 05/13/18 12:42 05/13/18 12:42 05/13/18 12:42 05/13/18 12:42 05/13/18 12:42 Vital Signs Reviewed: Yes Diagnostics - Vital Signs Vital Signs Temp Pulse Resp BP Pulse Ox 05/13/18 18:28 98.4 F 76 15 157/67 97 05/13/18 18:00 69 8 92 05/13/18 17:49 66 15 163/64 95 05/13/18 17:18 58 3 132/57 90 05/13/18 17:00 56 4 90 05/13/18 16:50 16 05/13/18 16:49 56 13 117/57 93 05/13/18 16:19 53 14 125/35 96 05/13/18 16:00 52 15 93 05/13/18 15:49 52 10 120/55 92 05/13/18 15:18 51 15 123/47 93 05/13/18 15:00 53 17 97 05/13/18 14:49 50 13 93/70 97 05/13/18 14:28 95 05/13/18 14:18 50 15 138/56 91 05/13/18 14:00 52 17 96 05/13/18 13:48 54 13 137/59 99 05/13/18 13:31 56 17 154/63 99 05/13/18 13:18 61 18 147/72 98 05/13/18 13:00 52 14 99 05/13/18 12:49 51 13 127/52 96 05/13/18 12:48 51 15 97 05/13/18 12:42 98.1 F 59 20 127/52 96 - Laboratory Lab Results: Lab Results 05/13/18 05/13/18 05/13/18 Range/Units 13:39 13:39 13:39 WBC 11.7 H (3.5-10.8) 10^3/ul RBC 3.25 L (4.00-5.40) 10^6/ul Hgb 10.2 L (14.0-18.0) g/dl Hct 30 L (42-52) % MCV 91 (80-94) fL MCH 31 (27-31) pg MCHC 35 (31-36) g/dl RDW 15 (10.5-15) % Plt Count 143 L (150-450) 10^3/ul MPV 8.6 (7.4-10.4) um3 Neut % (Auto) 85.7 H (38-83) % Lymph % (Auto) 8.9 L (25-47) % [place] % (Auto) 4.3 (0-7) % Eos % (Auto) 0.8 (0-6) % Baso % (Auto) 0.3 (0-2) % Absolute Neuts (auto) 10.0 H (1.5-7.7) 10^3/ul Absolute Lymphs (auto) 1.0 (1.0-4.8) 10^3/ul Absolute Monos (auto) 0.5 (0-0.8) 10^3/ul Absolute Eos (auto) 0.1 (0-0.6) 10^3/ul Absolute Basos (auto) 0 (0-0.2) 10^3/ul Absolute Nucleated RBC 0 10^3/ul Nucleated RBC % 0 D-Dimer, Quantitative (Less Than 230) ng/mL Sodium (135-145) mmol/L Potassium (3.5-5.0) mmol/L Chloride (101-111) mmol/L Carbon Dioxide (22-32) mmol/L Anion Gap (2-11) mmol/L BUN (6-24) mg/dL Creatinine (0.67-1.17) mg/dL Est GFR ( Amer) (>60) Est GFR (Non-Af Amer) (>60) BUN/Creatinine Ratio (8-20) Glucose (70-100) mg/dL Lactic Acid 1.4 (0.5-2.0) mmol/L Calcium (8.6-10.3) mg/dL Total Bilirubin (0.2-1.0) mg/dL AST (13-39) U/L ALT (7-52) U/L Alkaline Phosphatase (34-104) U/L Total Creatine Kinase (10-223) U/L Troponin I (<0.04) ng/mL B-Natriuretic Peptide 122 H ( - 100) pg/mL Total Protein (6.4-8.9) g/dL Albumin (3.2-5.2) g/dL Globulin (2-4) g/dL Albumin/Globulin Ratio (1-3) 05/13/18 05/13/18 05/13/18 Range/Units 13:40 13:40 16:34 WBC (3.5-10.8) 10^3/ul RBC (4.00-5.40) 10^6/ul Hgb (14.0-18.0) g/dl Hct (42-52) % MCV (80-94) fL MCH (27-31) pg MCHC (31-36) g/dl RDW (10.5-15) % Plt Count (150-450) 10^3/ul MPV (7.4-10.4) um3 Neut % (Auto) (38-83) % Lymph % (Auto) (25-47) % [place] % (Auto) (0-7) % Eos % (Auto) (0-6) % Baso % (Auto) (0-2) % Absolute Neuts (auto) (1.5-7.7) 10^3/ul Absolute Lymphs (auto) (1.0-4.8) 10^3/ul Absolute Monos (auto) (0-0.8) 10^3/ul Absolute Eos (auto) (0-0.6) 10^3/ul Absolute Basos (auto) (0-0.2) 10^3/ul Absolute Nucleated RBC 10^3/ul Nucleated RBC % D-Dimer, Quantitative < 200 (Less Than 230) ng/mL Sodium 140 (135-145) mmol/L Potassium 4.2 (3.5-5.0) mmol/L Chloride 108 (101-111) mmol/L Carbon Dioxide 23 (22-32) mmol/L Anion Gap 9 (2-11) mmol/L BUN 39 H (6-24) mg/dL Creatinine 1.74 H (0.67-1.17) mg/dL Est GFR ( Amer) 48.4 (>60) Est GFR (Non-Af Amer) 37.7 (>60) BUN/Creatinine Ratio 22.4 H (8-20) Glucose 113 H (70-100) mg/dL Lactic Acid (0.5-2.0) mmol/L Calcium 9.0 (8.6-10.3) mg/dL Total Bilirubin 1.10 H (0.2-1.0) mg/dL AST 70 H (13-39) U/L ALT 33 (7-52) U/L Alkaline Phosphatase 145 H (34-104) U/L Total Creatine Kinase 59 (10-223) U/L Troponin I 0.00 0.00 (<0.04) ng/mL B-Natriuretic Peptide ( - 100) pg/mL Total Protein 5.9 L (6.4-8.9) g/dL Albumin 3.7 (3.2-5.2) g/dL Globulin 2.2 (2-4) g/dL Albumin/Globulin Ratio 1.7 (1-3) Result Diagrams: 05/13/18 13:39 05/13/18 13:40 Lab Statement: Any lab studies that have been ordered have been reviewed, and results considered in the medical decision making process. - Radiology Chest XR Xray Interpretation: No Acute Changes - IMPRESSION: No active disease. Dr. Lee has reviewed this radiology report. Radiology Interpretation Completed By: Radiologist - Ultrasound No standard instances Ultrasound Interpretation: Positive (See Comments) - Gallbladder US IMPRESSION: 1. Distended gallbladder with sludge or gallstones. 2. Mildly distended extrahepatic ducts. Dr. Lee has reviewed this radiology report. Ultrasound Interpretation Completed By: Radiologist - EKG 12:39 Cardiac Rate: Bradycardia - at 55 bpm EKG Interpretation: Junctional bradycardia Chest Pain Course/Dx - Course Course Of Treatment: Mr. Leo presented after this sudden onset of a very transient chest pain that quickly turned into mid back pain. He was aggravated by movement only and not associated with any other exacerbating or relieving factors. There are no associated symptoms. EKG was unremarkable and labs were obtained. He had a slight AST elevation and alkaline phosphatase elevation and a slight leukocytosis. He was not tender in the right upper quadrant but an ultrasound was obtained which showed a distended gallbladder with gallstones and no gallbladder wall thickening or sonographic Yates sign. After pain medication he was much more comfortable but still complaining of mid back pain with movement only. A straight leg raise was negative. A second troponin was negative as was d-dimer. My impression is that this is a musculoskeletal pain from his back and he had a very brief anterior referred pain. I do think he may need a HIDA scan or further workup for his gallbladder but this does not seem to be the problem at this time. I recommended close follow-up with Dr. Franz is in the next day or 2 and will treat symptomatically with tramadol - Diagnoses Provider Diagnoses: Back pain Discharge - Sign-Out/Discharge Documenting (check all that apply): Discharge/Admit/Transfer - Discharge - Discharge Plan Condition: Stable Disposition: HOME Prescriptions: traMADol TAB* [Ultram*] 50 mg PO Q6HR PRN #20 tab MDD 4 PRN Reason: Pain Patient Education Materials: Back Pain (ED) Referrals: Jw Franz MD [Primary Care Provider] - 2 Days (in 2-3 days.) Additional Instructions: Please follow up with Dr. Franz this week. RETURN TO THE ED FOR ANY WORSENING SYMPTOMS. - Billing Disposition and Condition Condition: STABLE Disposition: Home The documentation as recorded by the Jameel gray Angela accurately reflects the service I personally performed and the decisions made by me, Marvel Lee MD.
== END 2018-05-13 18:28 | disposition home or self-care (01) ==
LOC: ED 12:32
DX: M54.9 Dorsalgia, unspecified (principal); R07.9 Chest pain, unspecified; R00.1 Bradycardia, unspecified; R74.0 Nonspecific elevation of levels of transaminase and lactic acid dehydrogenase [LDH]; D72.829 Elevated white blood cell count, unspecified; R74.8 Abnormal levels of other serum enzymes; K82.8 Other specified diseases of gallbladder; I25.10 Atherosclerotic heart disease of native coronary artery without angina pectoris; I12.9 Hypertensive chronic kidney disease with stage 1 through stage 4 chronic kidney disease, or unspecified chronic kidney disease; N18.4 Chronic kidney disease, stage 4 (severe); E78.00 Pure hypercholesterolemia, unspecified; Z95.5 Presence of coronary angioplasty implant and graft; Z79.899 Other long term (current) drug therapy
CPT/HCPCS: 36415; 71045; 76705; 80053; 82550; 83605; 83880; 84484; 85025; 85379; 93005; 96374; 96376; 99284; J2270

== ENCOUNTER 2018-06-07 09:52 | Emergency (ER) | payer MEDICARE, OTHER, BC ==
[2018-06-07] MEDS ORDERED: Piperacillin/Tazobac ADVAN(*) 3.375 GM in NS 0.9% 100 ML* 100 ML IVPB ONE (10:50)
--- NOTE | 2018-06-07 10:55 | ED ---
Complex/Multi-Sys Presentation - HPI Summary HPI Summary: A 82 y/o male presents to ED c/o trouble sleeping for the past two nights ( since , 06/05/18). Additionally c/o decreased appetite, general body aches, swelling in feet/ankles, generalized weakness and subjective fever. Currently, the fever has gone down, decreased swelling and overall feels better. Pt denies any CP, SOB, urinary pain or burning, headache or dizziness, however, he noted diarrhea, nausea and RUQ abdominal pain (pain over gall bladder). Tylenol helps alleviate his symptoms. According to the patient, he is scheduled for a cholecystectomy on 06/19/2018. He noted that he is not sure why he cannot sleep. He believes it could be because of the surgery. As per , on the first night (06/05/18) he had been in his rocking chair with his feet elevated. He was able to fall asleep most of the day. On 06/06/18, he had little sleep. She noted that he felt warm on his forehead, hands and he complains of diffuse body aches. She stated that the patient has had swelling in his feet and ankles. Pt was given 500 mg (2) of Tylenol at 0730. Allergies include Diovan and Ciprofloxacin. PMHx of Aortic Murmur, Aortic insufficiency, Stent, Cataracts, Carotid Endarterectomy (both sides, right last year) and Stage 4 Kidney Disease. Daily Medications: AM: 1 - per day vitamin 1 - full-strength Aspirin 1 - 300 mg Irbesartan 2 - 100 mg Allopurinaol NOON: 1 - 10 mg Amlodipine PM: 1 - 20 mg Atorvastatin - History Of Current Complaint Chief Complaint: EDFever Time Seen by Provider: 06/07/18 10:23 Hx Obtained From: Patient Onset/Duration: Sudden Onset, Lasting Days - Past two nights Timing: Intermittent, Lasting: Severity Currently: None Aggravating Factor(s): NOTHING Alleviating Factor(s): TYLENOL Associated Signs And Symptoms: Positive: Nausea, Diarrhea, Abdominal Pain - RUQ. Negative: Dizziness, Headache, SOB, Chest Pain - Allergies/Home Medications Allergies/Adverse Reactions: Allergies Allergy/AdvReac Type Severity Reaction Status Date / Time ciprofloxacin Allergy Hallucinati Verified 06/07/18 10:19 ons Opioids - Morphine Analogues Allergy Hallucinati Verified 06/07/18 10:19 ons valsartan [From Diovan] Allergy Hives Verified 06/07/18 10:19 PMH/Surg Hx/FS Hx/Imm Hx Cardiovascular History: Reports: Hx Coronary Artery Disease, Hx Hypercholesterolemia, Hx Hypertension - ON MEDICATION, Other Cardiovascular Problems/Disorders - s/p cardiac stents GI History: Reports: Hx Diverticulosis History: Reports: Hx Chronic Renal Failure - stage IV, Hx Renal Disease - LEVEL 4 Sensory History: Reports: Hx Contacts or Glasses - reading Denies: Hx Hearing Aid Opthamlomology History: Reports: Hx Contacts or Glasses - reading Psychiatric History: Reports: Hx Depression - Surgical History Surgery Procedure, Year, and Place: carotid endarectomy LEFT, cardiac stent Infectious Disease History: No Infectious Disease History: Denies: Traveled Outside the [place] in Last 30 Days - Family History Known Family History: Positive: Cardiac Disease, Renal Disease, Other - [place] - Social History Alcohol Use: Occasionally Hx Substance Use: No Substance Use Type: Reports: None Smoking Status (MU): Never Smoked Tobacco Review of Systems Positive: Fever - Subjective Negative: Chest Pain Negative: Shortness Of Breath Positive: Abdominal Pain - RUQ, Diarrhea, Nausea, Other - POSITIVE: Decreased appetite Negative: burning, pain Positive: Myalgia - POSITIVE: Diffuse body aches, Edema - Both ankles and feet Neurological: Other - POSITIVE: generalized weakness; NEGATIVE: Dizziness Negative: Headache All Other Systems Reviewed And Are Negative: Yes Physical Exam - Summary Physical Exam Summary: Appearance: ill-appearing, moderate pain distress, well-nourished Skin: Warm, color reflects adequate perfusion, dry, pale Head: Normal Head/Face inspection, atraumatic Eyes: Conjunctiva clear ENT: Normal inspection Neck: Supple, no nodes, no JVD Respiratory: Lungs clear, normal breath sounds, no respiratory distress Cardio: RRR, II/ holosystolic murmur at base, pulses normal, brisk capillary refill Abdomen: Soft, tender RUQ, no guarding, no rebound, no masses, no CVA tenderness. Bowel sounds: Present Musculoskeletal: Strength Intact/ROM intact, no calf tenderness, 2+ pedal edema. Psychological: Normal Neuro: Alert, muscle tone normal, no focal deficit Triage Information Reviewed: Yes Vital Signs On Initial Exam: Initial Vitals Temp Pulse Resp BP Pulse Ox 97.7 F 66 18 131/52 98 06/07/18 10:14 06/07/18 10:14 06/07/18 10:14 06/07/18 10:14 06/07/18 10:14 Vital Signs Reviewed: Yes Diagnostics - Vital Signs Vital Signs Temp Pulse Resp BP Pulse Ox 06/07/18 10:38 68 11 140/67 96 06/07/18 10:31 68 14 143/68 98 06/07/18 10:14 97.7 F 66 18 131/52 98 - Laboratory Result Diagrams: 06/07/18 10:57 06/07/18 10:57 Lab Statement: Any lab studies that have been ordered have been reviewed, and results considered in the medical decision making process. - Radiology CXR Xray Interpretation: No Acute Changes Radiology Interpretation Completed By: Radiologist - No radiographic evidence for acute cardiopulmonary abnormality on this portable chest x-ray. ED physician reviewed this radiology report. - Ultrasound No standard instances Ultrasound Interpretation Completed By: Radiologist - BILIARY SLUDGE AND MILD GALLBLADDER WALL THICKENING COULD BE SEEN IN THE SETTING OF LOW-GRADE CHOLECYSTITIS. THE PATIENT'S COMMON BILE DUCT MEASURES UP TO 8 MM IN DIAMETER WHICH IS NOT PATHOLOGICALLY DILATED FOR A MAN IN HIS EIGHTH DECADE. ED physician reviewed this radiology report. - EKG 1100 Cardiac Rate: NL - 70 BPM EKG Rhythm: Sinus Rhythm ST Segment: Non-Specific Ectopy: None EKG Interpretation: nl AVCT,Prolonged IVCT,RBBB & LAPB pattern,Prolonged QTc 519 , Left axis -54 EKG Comparison: Other - 05/13/18. Now in sinus rhythm. Complex Multi-Symp Course/Dx Course Of Treatment: A 82 y/o male presents with subjective fever and chronic cholecystitis. History of CHF and Aortic value disease presents with fever and sepsis. Initial path will be not to give 30 mL/kg of IV fluids. As per protocol , due to patients peripheral edema and stage 4 kidney disease. Possible CHF. Does note show abnormal liver functions or elevated white count. Does show decreased hemoglobin. Patient to be admitted for further evaluation for subjective fever, weakness and decreased hemoglobin. Fever was not documented in ED. Rectal exam with conference planning manager, Natali, at 1330. Exam revealed external hemorrhoids, brown stool, prostate normal, sent for guaiac. Pt medications reviewed this visit. Follow up with PCP, Dr. Valente, in 2 days. Hospitalist managed patient care. Did repeat US discussed with Dr. Hammonds who agreed patient can be managed as outpatient. Patient will be discharged with a diagnosis of billary colic. - Diagnoses Provider Diagnoses: Biliary colic - Physician Notifications Discussed Care Of Patient With: Kimber Lucas Time Discussed With Above Provider: 13:21 Instructed by Provider To: Other - Dr. Schuster spoke with Kimber Lucas on behalf of Dr. Walsh. Does not feel acute cholecystitis is cause of patient symptoms at this time. Does note recommend abdominal imagine at this tiem. Recommend medical admission for weakness, subjective fever and decreased hemoglobin. Discharge - Sign-Out/Discharge Documenting (check all that apply): Patient Departure - DISCHARGE HOME - Discharge Plan Condition: Stable Disposition: HOME Patient Education Materials: Biliary Colic (ED), Low Fat Diet (ED) Referrals: Eder Fuentes MD [Medical Doctor] - 2 Days Jw Franz MD [Primary Care Provider] - 2 Days Additional Instructions: You will need to follow up with Dr. Franz and Dr. Fuentes in the next 2-3 days regarding the elevated sed rate and your worsening anemia. We have given you a copy of your labs and ultrasound. Eat a low fat diet. Return to the ER if you have new or worsening symptoms.
[2018-06-07] MEDS ORDERED: NS 0.9% 1000 ML* 1,000 ML IV ONE (10:57)
[2018-06-07] MEDS ORDERED: Piperacillin/Tazobac (*) 3.375 GM BAG ONE (11:02)
[2018-06-07 11:09] LABS: ABS Basophils 0.1 10^3/ul (0-0.2); ABS Eosinophils 0.1 10^3/ul (0-0.6); ABS Monocytes 0.4 10^3/ul (0-0.8); ABS Neutrophils 8.8 10^3/ul (1.5-7.7); ABS Nucleated RBC 0 10^3/ul; Eosinophil % 0.5 % (0-6); Hematocrit 26 % (42-52); Hemoglobin 8.6 g/dl (14.0-18.0); Lymphocyte % 9.5 % (25-47); Mean Corpuscular HGB Conc 33 g/dl (31-36); Mean Corpuscular Hemoglobin 31 pg (27-31); Mean Corpuscular Volume 92 fL (80-94); Mean Platelet Volume 7.5 um3 (7.4-10.4); Nucleated Red Blood Cells % 0; Platelet Count 264 10^3/ul (150-450); Red Cell Distribution Width 16 % (10.5-15); White Blood Count 10.3 10^3/ul (3.5-10.8)
[2018-06-07 11:16] LABS: INR 0.97 (0.77-1.02)
[2018-06-07 11:32] LABS: EGFR Non-African American 33.2 (>60)
[2018-06-07 11:41] LABS: Urine Appearance Clear; Urine Blood Negative (Negative); Urine Color Yellow; Urine Ketones Negative (Negative); Urine Protein Negative (Negative); Urine Specific Gravity 1.009 (1.010-1.030); Urine Urobilinogen Negative (Negative)
--- OUTSIDE RECORDS SUMMARY | 2018-06-07 11:47 | XMS REPORT ---
:1935 External Reference #:[id number] Author Organization [facility] Address [address] [place] [address] [place] [address] Phone [phone] Care Team Providers Name Role Phone Memo Hirsch M.D. Care Team Information Senior Clinical Data Manager Unavailable Payers Type Date Identification Numbers Payment Provider Subscriber Medicare Primary Policy Number: [id number] Medicare Carloz Leo PayID: [id number] [address] [place] [address] Medigap Part B Policy Number: [id number] [employer] Carloz Leo Group Number: [id number] [address] Group Name: [place] [address] PayID: [id number] Medigap Part B Policy Number: [id number] BS Facets Anushka Leo Group Number: [id number] [address] [address] Group Name: [place] [address] PayID: [id number] Problems Description No Information Family History Date Family Member(s) Problem(s) Comments Father Kidney Disease Father [place] Mother Hypertension First Brother Cancer First Sister Cancer Social History Type Date Description Comments Marital Status Lives With Spouse Occupation Retired ETOH Use Occasionally consumes alcohol Smoking Patient has never smoked Exercise Type/Frequency Does not exercise Allergies, Adverse Reactions, Alerts Date Description Reaction Status Severity Comments 05/16/2018 Ciprofloxacin Nausea and Vomiting active 05/16/2018 Valsartan active itching Medications Medication Date Status Form Strength Qnty SIG Indications Ordering Provider Aspirin [address] 325mg 1 by Unknown 000 mouth every day Ferrous Sulfate 0 Active Tablets 650mg 1 by Unknown 000 mouth twice a day Multivitamins 0 Active Tablet 1 by Unknown 000 mouth every day Tramadol HCL 0 Active Tablets 50mg 1-2 Unknown 000 tablets by mouth every 6 hours as needed pain Amlodipine Active Tablets 10mg 1 by Unknown Besylate 000 mouth every day Lipitor Active Tablets 20mg one tab Unknown 000 by mouth every night at bedtime Irbesartan 0 Active Tablets 300mg 1 by Unknown 000 mouth every day Allopurinol 0 Active Tablets 100mg 1 by Unknown 000 mouth every day Culturelle Active Capsules 1 tab Unknown 000 every day as needed Vital Signs Date Vital Result Comment 05/16/2018 Height 68 inches 5'8" Weight 178.00 lb Heart Rate 64 /min BP Systolic 120 mmHg BP Diastolic 70 mmHg Respiratory Rate 16 /min Body Temperature 97.8 F BMI (Body Mass Index) 27.1 kg/m2 Results Description No Information Procedures Description No Information Encounters Type Date Location Provider CPT E/M Dx Office Visit 03/07/2017 [place] devang Wyman M.D. [id number] R55 10:08a Hospitalists I25.10 I10 Office Visit 03/06/2017 10:08a devang Forbes N.P. 48676 R55 Hospitalists I25.10 I10 Plan of Care No Information Available
--- NOTE | 2018-06-07 12:18 | RAD ---
INDICATION: Fever COMPARISON: Chest x-ray May 13, 2019 TECHNIQUE: Single AP portable view of the chest was obtained. FINDINGS: Image quality is compromised due to the relative inferiority of a portable chest x-ray. The heart and mediastinum exhibit normal size and contour. There is coarse calcification overlying the arch of the aorta similar to the previous chest x-ray. The lungs are grossly clear. There is no evidence of a large pleural effusion. Visualized bones are normal for the patient's age. IMPRESSION: No radiographic evidence for acute cardiopulmonary abnormality on this portable chest x-ray.
[2018-06-07] MEDS ORDERED: amLODIPine TAB* 5 MG PO SCH (16:00)
--- NOTE | 2018-06-07 18:11 | RAD ---
HISTORY: Gallbladder pain COMPARISONS: Similar examination dated January 13, 2018 TECHNIQUE: Multiple transverse and longitudinal ultrasound images were obtained of the right upper quadrant. FINDINGS: LIVER: The liver is normal in dimensions and echogenicity. Normal hepatic and portal venous blood flow is duplicated with color flow imaging. There is no gross intrahepatic biliary duct dilatation. GALLBLADDER AND EXTRAHEPATIC BILIARY DUCT: Again seen is echogenic material dependent portion of the gallbladder consistent with biliary sludge. The velasquez are thickened up to 5.6 mm. The common bile duct measures a maximum diameter of 8 mm. PANCREAS: The portions of the pancreas not obscured by bowel gas are normal in appearance. RIGHT KIDNEY: The right kidney is normal in size, morphology and echogenicity. AORTA AND IVC: The visualized portions are normal in appearance and not pathologically dilated. IMPRESSION: BILIARY SLUDGE AND MILD GALLBLADDER WALL THICKENING COULD BE SEEN IN THE SETTING OF LOW-GRADE CHOLECYSTITIS. THE PATIENT'S COMMON BILE DUCT MEASURES UP TO 8 MM IN DIAMETER WHICH IS NOT PATHOLOGICALLY DILATED FOR A MAN IN HIS EIGHTH DECADE.
[2018-06-07 18:58] VITALS: BP 142/72
--- NOTE | 2018-06-07 20:34 | CONS ---
CC: Dr. Franz; Dr. Sharpe at [facility] MEDICINE CONSULTATION REPORT: DATE OF CONSULT: 06/07/18 PRIMARY CARE PHYSICIAN: Dr. Franz. CYBER SYSTEMS OPERATIONS SPECIALIST: Dr. Sharpe at [place]. ATTENDING PHYSICIAN: Dr. Giovana Schuster. CONSULTING PHYSICIAN: Sunny Hewitt MD (dictation provided by Kimber Lucas NP) . REASON FOR CONSULT: Concern regarding need for admission. HISTORY OF PRESENT ILLNESS: Mr. Leo is an 82-year-old male with past medical history of CKD stage 4, previous episodes of orthostatic hypotension with near syncope with decreased frequency recently, coronary artery disease with stent in 2006, and carotid endarterectomy in 2002 and 2016, who presents today to the hospital with concern for insomnia and possible fever. Mr. Leo provides some of the information, but this is greatly supported by his , who is at the bedside. Per the report, the patient has had ongoing issues with pain currently attributed to gall sludge and possible gallstones with plan for a cholecystectomy on 06/19/[address] Fuentes. The patient was seen here in the emergency room on 05/13/18 with complaint of chest pain. He was ruled out for acute coronary syndrome and had a gallbladder ultrasound that showed sludge , possible gallstones, but no gallbladder wall thickening. The patient followed up with his primary care physician, Dr. Franz and then ultimately with Dr. Fuentes and has undergone medical clearance with plan for a cholecystectomy later this month. In the setting of this, Mr. Leo has been noted by his to have insomnia over the past couple of nights. The patient himself denies any reason or complaint that led to the insomnia. He states he has been feeling okay but just he could not fall asleep. Yesterday, they were very busy throughout the day. He had no complaints. Last night, he could not sleep. When his woke up this morning, she thought that he felt warm, although she did not take his temperature. He was complaining of feeling a bit achy all over, though he denied any abdominal pain. He has had no diarrhea, no vomiting. He has been tolerating oral intake well. He has actually been continued on a regular fat diet including having ranch dressing for lunch yesterday and milk with cereal for dinner last night. Because of the fact that he was feeling warm and was having trouble sleeping, his brought him here for evaluation. In the emergency room, Mr. Leo had labs which showed no leukocytosis. He has anemia with a hemoglobin of 8.6. This is down from his baseline of approximately 10. He has an ESR of 106. There is no previous for comparison, but his CRP is only 27.08. His BUN and creatinine are elevated consistent with baseline CKD stage 4. His vitals are stable. He is afebrile. PAST MEDICAL HISTORY: 1. Recent diagnosis of gall sludge that is suspected to be symptomatic with plan for cholecystectomy with Dr. Fuentes later this month. 2. CKD, stage 4. 3. Orthostatic hypotension with episodes of near syncope. 4. Hypertension. 5. Coronary artery disease with stent placement in 2006. 6. Carotid endarterectomy in 2002 and 2016. MEDICATIONS: 1. Allopurinol 200 mg p.o. q.a.m. 2. Amlodipine 10 mg p.o. daily. 3. Multivitamin with mineral 1 tab p.o. q.a.m. 4. Irbesartan 300 mg p.o. q.a.m. 5. Ferrous sulfate 650 mg p.o. daily. 6. Atorvastatin 20 mg p.o. daily. 7. Aspirin 81 mg p.o. q.a.m. ALLERGIES: To CIPROFLOXACIN, OPIOIDS, and VALSARTAN. FAMILY HISTORY: Mother at 57 related to heart attack. Dad at 74 related to heart and kidney disease. Sister at 79 related to leukemia. REVIEW OF SYSTEMS: A 14-point review of systems was completed with Mr. Leo and all those not mentioned above were negative. PHYSICAL EXAM: Vital Signs: Temperature 98.2, pulse rate 80, respiratory rate 15, O2 saturation 100% on room air, blood pressure 130/60. General: Mr. Leo is sitting in the bed with his at the bedside. He is in no acute distress. Neuro: He is alert. He is oriented x3. He does have some short- term memory loss and is not able to provide full history and that is supported by his who is here today. He moves all extremities equally. There is no facial asymmetry or focal weakness. Extraocular movements are intact. The patient has good strong strength at the hip flexors and was able to get out of bed easily and independently. Heart: S1, S2. No murmur, rub or gallop and regular. Lungs are clear to auscultation bilaterally with no accessory muscle use and good aeration. The abdomen is soft, nontender throughout. Bowel sounds are positive x4. Extremities: No cyanosis or edema. Skin is intact. DIAGNOSTIC STUDIES/LAB DATA: WBC 10.3, hemoglobin 8.6, hematocrit 26, platelet count 264,000. ESR 106. INR was 0.97. Sodium 130, potassium 4.3, chloride 98 , serum bicarbonate 24, BUN 30, creatinine 1.94, glucose 110, lactic acid 0.6. CRP 27.0. Troponin 0.03. BNP 337. Procalcitonin is 0.3. Urine shows no evidence of infection. The patient had chest x-ray on arrival, which showed no radiographic evidence for acute cardiopulmonary abnormality. He went on for a gallbladder ultrasound, which showed "biliary sludge and mild gallbladder wall thickening could be seen in the setting of low-grade cholecystitis. The patient's common bile duct measures up to 8 mm in diameter, which is not pathologically dilated for a man in his 8th decade." ASSESSMENT AND PLAN: Mr. Leo is an 82-year-old male with past medical history of known gall sludge and plan for cholecystectomy later this month with Dr. Fuentes, as well as coronary artery disease and carotid stenosis, status post endarterectomy, who presents today to the hospital with concern from his that he has been having insomnia the past 2 nights and felt warm this morning with concern for possible fever. Here in the emergency room, his vital signs have been stable, he is afebrile. His labs showed no leukocytosis. He has no abdominal pain. He went on for a gallbladder ultrasound to reevaluate for possible cholecystitis and it does show some mild gallbladder thickening. I did review this in detail with Dr. Kaylyn Hammonds and she indicates that this would not change the plan for surgery later with Dr. Fuentes and required no acute intervention. The patient is tolerating oral intake well and is ambulating independently today. He has no complaints. He does have a few abnormalities that do need to be followed up on by primary care provider and should certainly follow up with Dr. Fuentes on Saturday, but at this time there is no indication for admission. Issues that do need addressing would be his anemia. His hemoglobin is 8.6 today. He has no report of blood in the stool, but he does have dark stool since he started using ferrous sulfate. He states that he has been anemic for some time secondary to chronic kidney disease stage 4 with recommendation to use iron supplementation from Dr. Sharpe at [place] because his "blood injections" were not helping his anemia any longer. I suspect that perhaps his hemoglobin is certainly low in part due to his chronic kidney disease stage 4, but he has no evidence of bleeding. This might be in part dilutional as he could be slightly fluid overloaded compared to baseline as he does have a small amount of lower extremity edema. He shows no vascular congestion and is not symptomatic in any way. He does have elevated ESR to 106, but his CRP is essentially normal at 27.08. He has no headache or sign of temporal arteritis and he has no weakness in his proximal muscles to suggest polymyalgia rheumatica. I suspect this is all related to his gallbladder, but certainly he should follow up closely with Dr. Franz and with Dr. Fuentes and I have recommended this to him and his . The patient should also return immediately to the emergency room with any worsening or concerning symptoms and states understanding as such. He also is to avoid fat in his diet until he has had this gallbladder surgery. Mr. Leo is medically stable for discharge to home. This has been reviewed at length with Dr. Hewitt from the hospitalist team and also with Dr. Hammonds from surgical services. TIME SPENT: Approximately 60 minutes were spent in the consultation of this patient with more than half the time spent with the patient the bedside and his performing the physical examination, reviewing the history of present illness, and reviewing the discharge plan. KIMBER LUCAS NP [id number]/[facility] #: [id number] [place]
== END 2018-06-07 19:03 | disposition home or self-care (01) ==
LOC: ED 09:52
DX: K80.50 Calculus of bile duct without cholangitis or cholecystitis without obstruction (principal); K82.8 Other specified diseases of gallbladder; K64.4 Residual hemorrhoidal skin tags; I13.0 Hypertensive heart and chronic kidney disease with heart failure and stage 1 through stage 4 chronic kidney disease, or unspecified chronic kidney disease; I50.9 Heart failure, unspecified; N18.4 Chronic kidney disease, stage 4 (severe); I25.10 Atherosclerotic heart disease of native coronary artery without angina pectoris; I35.8 Other nonrheumatic aortic valve disorders; Z95.5 Presence of coronary angioplasty implant and graft; Z79.899 Other long term (current) drug therapy; Z88.3 Allergy status to other anti-infective agents; Z88.8 Allergy status to other drugs, medicaments and biological substances
CPT/HCPCS: 36415; 71045; 76705; 80053; 81003; 82150; 82272; 82550; 83605; 83690; 83880; 84145; 84484; 85025; 85610; 85652; 85730; 86140; 86850; 86900; 86901; 87040; 93005; 96361; 96374; 99284; A9270-GY; J2543

== ENCOUNTER → 2018-06-19 06:00 | Day surgery (SDC) | payer MEDICARE, OTHER, BC ==
--- NOTE | 2018-06-13 17:23 | HP ---
CC: Dr. Jw Franz * ADMISSION HISTORY AND PHYSICAL: DATE OF ADMISSION: 06/19/18 ATTENDING SURGEON: Dr. Eder Fuentes.* (DICTATED BY MILLY SHAW) CHIEF COMPLAINT: Symptomatic cholelithiasis. HISTORY OF PRESENT ILLNESS: This is an 82-year-old male who had an episode of chest and abdominal pain on 05/13/18, for which he was evaluated in the ED. The patient describes lower chest/epigastric pain that radiated to the back, associated maybe with a bit of nausea, but no vomiting, fever, or chills. His cardiac workup was negative ( see below). An ultrasound of the gallbladder did show sludge and/or stones with trace of pericholecystic fluid. There was no significant gallbladder wall thickening. He did have mild leukocytosis with left shift. Total bilirubin was mildly elevated at 1.1 and alkaline phosphatase elevated at 145, AST at 70. He was symptomatically improved and discharged from the ED. He was seen for followup with his PCP, Dr. Franz, who then referred him here for surgical evaluation. He was seen by Dr. Fuentes on 05/16/18. His impression was that of symptomatic cholelithiasis and/or sludge and recommendation was made for cholecystectomy. He did undergo preoperative clearance with Dr. Franz (see separate report). He then had an episode, for which he was evaluated in the ED on 06/07/18 that consisted primarily of insomnia and possible fever. He was evaluated by the hospitalist team (see separate report) and was discharged. Workup again showed echogenic sludge and/or stones in independent portion of the gallbladder with gallbladder wall thickening measured at 5.6 mm. Liver function tests at that time were normal. He was seen again by Dr. Fuentes on and he presents for preoperative history and physical today in anticipation of surgery on 06/19/18. In the interim, he has not had any additional symptoms nor specifically any GI symptoms, though he is keeping his diet very conservative and ultra low-fat. He is able to give most of his history, though it is supplemented by his who is present. He understands the indications for surgery, the risks, benefits, and alternatives as well as the expected perioperative course. He would like to proceed as scheduled with laparoscopic cholecystectomy. PAST MEDICAL HISTORY: Hypertension; coronary artery disease, status post MEAL GRINDER TENDER with stent of the RCA in 2006 (seen by Cardiology in December of this year, echocardiogram at that time showing mild LVH with normal EF and mild mitral regurgitation. EKG showed a bifascicular block); carotid stenosis (status post bilateral carotid endarterectomy left side in 2002, right side in 2016 with evaluation by the Vascular Surgery team this past week); stage 4 chronic kidney disease (stable); gout; hyperlipidemia; chronic anemia (secondary to chronic kidney disease). PAST SURGICAL HISTORY: Previous surgeries include RCA stenting in 2006, bilateral carotid endarterectomies, bilateral cataract surgery. No reported surgical or anesthesia problems. CURRENT MEDICATIONS: 1. Allopurinol 100 mg 2 tablets q. day. 2. Irbesartan 300 mg once daily. 3. Lipitor 20 mg once daily. 4. Amlodipine 10 mg once daily. 5. Multivitamin once daily. 6. Ferrous sulfate 325 mg 2 tablets q. day. 7. Aspirin 325 mg q. day (he will continue perioperatively). 8. Culturelle p.r.n. DRUG ALLERGIES: CIPRO (hallucinations), TRAMADOL (hallucinations), VALSARTAN ( itching). FAMILY HISTORY: Positive of gallbladder disease in his mother and sister. There is no known family history of problems with general anesthesia or bleeding or clotting disorders. SOCIAL HISTORY: The patient lives with his . 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 He denies the use of tobacco. He drinks approximately 1 glass of wine per week. He denies other recreational drug use. REVIEW OF SYSTEMS: General: No recent constitutional symptoms other than per the HPI and as noted in past medical history and below. His weight has been stable other than down a few pounds since institution of an ultra low-fat diet. Eyes: He did have some eye tearing, for which he was seen by the research technologist this week. No other visual changes. Ears, nose, and throat: No problems reported. Cardiovascular: As above. See separate note from Dr. Franz. Respiratory: No history of asthma, chronic cough, or shortness of breath. GI: As above per HPI. No lower GI symptoms. Stool has been checked on multiple occasions and has been negative for occult blood. : He does have nocturia x2 to 3, but no recent changes from his baseline. Chronic kidney disease stage 4, stable. Neuro/Psych: As above. No additions. Rheumatological : No recent exacerbation of his gout. Hematological: Mild chronic anemia, stable. PHYSICAL EXAMINATION GENERAL: Well-nourished, well-developed male, in no acute distress. VITAL SIGNS: Height 68 inches, weight 170 pounds by history. Temperature 97, blood pressure 112/58, pulse 60, respirations 18. HEENT: Right pupil smaller versus left. Left pupil reactive to light. EOMs intact. No significant conjunctival pallor. OROPHARYNX: Teeth in good repair. No intraoral lesions. NECK: No lymphadenopathy or thyromegaly. No masses. LUNGS: Clear to auscultation. No rales or wheezes. HEART: Regular rate and rhythm. There is a systolic murmur heard best at the apex. ABDOMEN: Flat, soft, nondistended, mild tenderness to palpation in the right upper quadrant. No palpable masses or organomegaly. GENITALIA: Not done. RECTAL: Not done. BACK: No spinous process or CVA tenderness. EXTREMITIES: 1+ edema bilaterally, right greater than left (consistent with his baseline according to his ). NEUROLOGICAL: Grossly intact. SKIN: Warm and dry. No suspicious rashes or lesions noted. He does have couple of areas of ecchymosis on his forearms. IMPRESSION: Symptomatic cholelithiasis/sludge. PLAN: Laparoscopic cholecystectomy. MILLY SHAW [id number]/[facility] #: [id number] MTDDontae
[~2018-06-19 06:00] MED LIST: Buffered Lidocaine 0.9% SYRIN* 5 ML/SYR SYRINGE INTRADERM ONE; Bupivacaine 0.25% W/EPI* 10 ML SDV ONE; Dexamethasone IV* 4 MG/ML 1 ML (4 MG) IV SLOW PU ONE; Dexamethasone IV* 4 MG/ML 1 ML (4 MG) ONE; Famotidine IV* 10 MG/ML 2 ML (20 mg) IV ONE; Famotidine IV* 10 MG/ML 2 ML (20 mg) ONE; Lidocaine 2% PF * 5 ML VIAL ONE; Naloxone* 0.4 MG/ML 1 ML VIAL IV PRN; Ondansetron INJ* 2 MG/ML VIAL IV PRN; Phenylephrine INJ* 10 MG/ML 1 ML VIAL (10 MG) ONE; Propofol* 10 MG/ML 20 ML BTL IV PUSH ONE; Rocuronium* 10 MG/ML VIAL ONE; Succinylcholine* 20 MG/ML 10 ML VIAL ONE; Sugammadex * 200 MG/2 ML VIAL IV PUSH ONE; ceFAZolin 2 GM PREMIX (*) 2 GM/50 ML BAG IVPB ONE; fentaNYL* 50 MCG/ML 2 ML VIAL (100 MCG VIAL) IV PRN; fentaNYL* 50 MCG/ML 2 ML VIAL (100 MCG VIAL) ONE
--- NOTE | 2018-06-19 10:56 | RAD ---
HISTORY: Facial drooping, R/O stroke COMPARISONS: Head CT dated March 06, 2017 TECHNIQUE: The following sequences were obtained of the head: Sagittal T1-weighted images, axial T2-weighted images, axial FLAIR images, axial susceptibility weighted images, axial T1-weighted images. Additionally, axial diffusion-weighted images were obtained with calculated apparent diffusion coefficients. FINDINGS: HEMORRHAGE/INFARCT: There is no hemorrhage or acute infarct. MASSES/SHIFT: There is no mass or shift. EXTRA-AXIAL SPACES/MENINGES: There are no extra-axial fluid collections. SULCI AND VENTRICLES: There is mild diffuse and proportional enlargement of the sulci and ventricles. CEREBRUM: There is extensive multifocal and confluent elevated T2/FLAIR signal within the periventricular and subcortical white matter. BRAINSTEM: There are no focal parenchymal abnormalities. CEREBELLUM: There are no focal parenchymal abnormalities. The cerebellar tonsils are normal in size and position. SELLA: The sella is normal. PINEAL: The pineal region is clear. CP ANGLE/TEMPORAL BONES: The labyrinthine structures are grossly normal. VESSELS: Normal flow-voids are noted within the visualized vertebral vasculature. DIFFUSION ABNORMALITIES: There are no diffusion abnormalities. PARANASAL SINUSES/MASTOIDS: There is a mucous retention cyst of the right maxillary sinus. ORBITS: The orbits are unremarkable. BONES AND SOFT TISSUE: No bone or soft tissue abnormalities are noted. OTHER: None IMPRESSION: 1. NO RESTRICTED DIFFUSION TO SUGGEST ACUTE INFARCT. 2. 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 WHILE THIS IS NONSPECIFIC, THE DIFFERENTIAL INCLUDES CHRONIC SMALL VESSEL ISCHEMIA, WELL THE SEQUELA OF PREVIOUS INFECTION OR INFLAMMATION. DEMYELINATING DISEASE IS ALSO WITHIN THE DIFFERENTIAL BUT IS CONSIDERED LESS LIKELY IN THE ABSENCE OF THE APPROPRIATE DICTATION.
[2018-06-19 15:11] VITALS: BP 118/49
--- NOTE | 2018-06-20 02:11 | OP ---
CC: Eder Fuentes MD; Jw Franz MD * DATE OF OPERATION: 06/19/18 - [facility] DATE OF : 33 SURGEON: Eedr Fuentes MD FEATHER SHAPER: Ynes Frias NP ANESTHESIOLOGIST: Dr. Hinson. ANESTHESIA: General anesthetic. PRE-OP DIAGNOSIS: Chronic cholecystitis. POST-OP DIAGNOSIS: Chronic cholecystitis. OPERATIVE PROCEDURE: Laparoscopic cholecystectomy. DESCRIPTION OF PROCEDURE: The patient was supine in the operating table. After adequate general anesthetic, compression stockings, Bren Hugger warmer, and intravenous antibiotics, the abdomen was prepped with antiseptic and draped in a sterile fashion. Local infiltrative anesthesia was administered and small umbilical incision was created. Blunt port cannula was placed. Insufflation was carried out with carbon dioxide. Additional cannulae, 12 mm subxiphoid and 5 mm right upper quadrant and right anterior axillary line were placed through small stab wounds under direct vision. Gall-bladder was chronically inflamed and adherent to the liver. The cystic duct and cystic artery were readily identified. There was a posterior branch of cystic artery as well. Critical field of view was obtained and everything appeared to be good condition. The cystic duct appeared to be short so it was taken right at the neck of the gallbladder. The gallbladder was removed from the liver bed using electrocautery. There was some bile spillage but no stone spillage. Again, the liver bed was rather fibrotic and difficult to dissect. Gallbladder was placed in retrieval bag and brought out through the epigastric site. The operative field was irrigated with warm saline solution. Free fluid was suctioned out. Hemostasis was obtained using electrocautery on the liver bed and this was examined over about 10 minutes and was in excellent condition. Additional irrigation suctioning was carried. Everything was in good condition. The cannulae were removed. Pneumoperitoneum was allowed to escape. The fascia of the 2 larger incisions were closed with 0 Vicryl, skin with 5-0 Vicryl followed by Steri-Strips. He tolerated the procedure well, was awakened and brought to recovery in good condition. There were no complications. No drains. Pathologic specimen, gallbladder. Sponge and instruments counts were correct. Estimated blood loss 30 mL. [id number]/[facility] #: [id number] [facility]
== END | disposition home or self-care (01) ==
LOC: OR 06:00
PROVIDERS: ATTEND Surgery
DX: K80.12 Calculus of gallbladder with acute and chronic cholecystitis without obstruction (principal); R29.810 Facial weakness; I67.2 Cerebral atherosclerosis; R07.9 Chest pain, unspecified; I25.10 Atherosclerotic heart disease of native coronary artery without angina pectoris; Z95.5 Presence of coronary angioplasty implant and graft; N18.4 Chronic kidney disease, stage 4 (severe); E78.5 Hyperlipidemia, unspecified; I12.9 Hypertensive chronic kidney disease with stage 1 through stage 4 chronic kidney disease, or unspecified chronic kidney disease; D63.1 Anemia in chronic kidney disease
CPT/HCPCS: 70551; 88304; J0330; J0690; J1100; J2704; J3010